=== PATIENT | female | born 1980 | race Caucasian/White ===

== ENCOUNTER 2021-09-13 13:30 | Emergency (ER) | payer SELFPAY ==
[~2021-09-13 13:30] MED LIST: Iopamidol 370 76% 100 ML VIAL ONE
[2021-09-13 14:05] LABS: Clarity Slightly Cloudy (Clear); Leukocyte Moderate (Negative); Nitrite Negative (Negative); Specific Gravity, Urine 1.015 (1.005-1.030)
[2021-09-13 14:06] LABS: Bilirubin Small (Negative); Blood, Urine Large (Negative); Glucose, Urine (Dipstick) Negative (Negative); Ketone, Urine Negative (Negative); Protein, Urine (Dipstick) 30 mg/dL (Neg-Trace)
[2021-09-13 14:07] LABS: Pregnancy Test - Urine (BHCG) Negative (Negative)
[2021-09-13 14:08] LABS: Pregu Control Background? CLEAR/WHITE (CLR/WHITE); Pregu Control Bar Appear? YES (CONTROL BAR); Specific Gravity 1.015 (1.002-1.036)
[2021-09-13 14:13] LABS: Bacteria/HPF 1+ HPF (None Seen)
[2021-09-13 14:16] LABS: Mucous/LPF 1+ LPF (<2+)
[2021-09-13] MEDS ORDERED: Ondansetron PF 4 MG/2 ML Vial ONE (14:20)
[2021-09-13] MEDS ORDERED: Morphine 4 MG/ML VIAL ONE (14:20)
[2021-09-13 14:42] LABS: #Basophils 0.1 thou/uL (0.0-0.2); #Eosinphils 0.1 thou/uL (0.0-0.7); #Lymphocytes 2.2 thou/uL (1.20-3.40); #Monocytes 0.7 thou/uL (0.11-0.59); #Neutrophils 6.8 thou/uL (1.40-6.50); %Basophils 1.2 % (0.0-1.0); %Eosinophils 1.2 % (0.0-10.0); %Lymphocytes 21.8 % (21.0-51.0); %Monocytes 6.6 % (0.0-10.0); %Neutrophils 69.2 % (42.0-75.0); Hemoglobin 15.4 g/dL (12.0-16.0); Mean Corpuscular HGB CONC 31.8 g/dL (32.0-36.0); Mean Platelet Volume 7.1 fL (7.4-10.4); Platelet Count 468 thou/uL (130-400); RBC Distribution Width 12.9 % (11.5-14.5); Red Blood Cell (RBC) Count 4.65 mill/uL (4.20-5.40); White Blood Cell (WBC) Count 9.9 thou/uL (4.8-10.8)
[2021-09-13 14:59] LABS: ALT (SGPT) 15 U/L (8-55); AST (SGOT) 20 U/L (5-34); Albumin 4.2 g/dL (3.5-5.0); Alkaline Phosphatase 96 U/L (40-110); Anion Gap 20 mmol/L (10-20); BUN (Urea Nitrogen) 12 mg/dL (7.0-18.7); Bilirubin, Total 1.3 mg/dL (0.2-1.2); Calc. Creatinine Clearance 0 mL/min (70-130); Calcium 9.3 mg/dL (7.8-10.44); Carbon Dioxide 25 mmol/L (22-29); Chloride 95 mmol/L (98-107); Globulin 3.3 g/dL (2.4-3.5); Glucose 93 mg/dL (70-105); Lipase 133 U/L (8-78); Protein, Total 7.5 g/dL (6.0-8.3); Sodium 137 mmol/L (136-145)
[2021-09-13 15:09] LABS: Potassium 2.6 mmol/L (3.5-5.1)
[2021-09-13 15:29] LABS: Magnesium 1.4 mg/dL (1.6-2.6)
[2021-09-13] MEDS ORDERED: Sodium Chloride 0.9% 100 ML ONE (15:40)
[2021-09-13] MEDS ORDERED: Potassium Chloride 10 MEQ/100 ML PREMIX BAG ONE (15:40)
[2021-09-13] MEDS ORDERED: Piperacillin/Tazobactam 4.5 GM VIAL ONE (15:40)
[2021-09-13] MEDS ORDERED: Magnesium 2 GM/50 ML BAG (IN WATER) ONE (15:54)
== END 2021-09-13 17:40 | disposition home or self-care (01) ==
LOC: NAV ERS 13:30
DX: E87.6 Hypokalemia (principal); R11.2 Nausea with vomiting, unspecified; R10.813 Right lower quadrant abdominal tenderness; N83.201 Unspecified ovarian cyst, right side; F17.210 Nicotine dependence, cigarettes, uncomplicated; Z87.19 Personal history of other diseases of the digestive system; Z79.899 Other long term (current) drug therapy
CPT/HCPCS: 74177; 80053; 81003; 81015; 81025; 83605; 83690; 83735; 85025; 87086; 93005; 94760; 96361; 96365; 96367; 96368; 96375; J2270; J2405; J2543; J3475; J3480; J3490; Q9967

== ENCOUNTER 2022-02-24 10:24 | Emergency (ER) | payer SELFPAY ==
[2022-02-24] MEDS ORDERED: Dexamethasone 20 MG/5 ML VIAL ONE (11:30)
[2022-02-24] MEDS ORDERED: Ondansetron ODT 4 MG TAB ONE (11:30)
== END 2022-02-24 12:30 | disposition home or self-care (01) ==
LOC: NAV ERS 10:24
DX: J01.00 Acute maxillary sinusitis, unspecified (principal); K02.9 Dental caries, unspecified; F17.210 Nicotine dependence, cigarettes, uncomplicated
CPT/HCPCS: 70450; 70486; 96372; J1100; Q0162